=== PATIENT | female | born 1985 | race Caucasian/White ===

== ENCOUNTER 2025-02-23 21:08 | Emergency (ER) | payer OTHER, SELFPAY ==
[2025-02-23 21:11] VITALS: BP 120/90
--- NOTE | 2025-02-23 23:01 | ED.GENMED ---
History of Present Illness
General
Chief Complaint: Skin Surface Trauma
Source: patient
Exam Limitations: none
Time Seen by Provider: 02/23/25 22:28
Nursing documentation reviewed up to this point in time: agreed with
History of Present Illness
History of Present Illness:
Patient presents to ED secondary to right lower leg laceration, which occurred, when she fell accidentally and hit the back of her right lower leg against a screw. Denies any other injuries. Denies loss of sensation or weakness. The patient does
not take any blood thinning medications.
Past History
Past History
ED Past Medical History: Other (ectopic ); Negative Asthma, HTN, Hypercholesterolemia or NIDDM
ED Past Surgical History: Gynecological (Tubal and then reversal, Ectopic - R with tube removal) and Other (abdominoplasty)
Social History
Tobacco: Non-smoker
Alcohol: None
Drug: None
Personal: Single
Living: with family
Employment: Employed
Family History
Family History: Other (Noncontributory)
Review of Systems
Review of Systems
Allergies reviewed?: Yes
All Other Systems: ROS reviewed and negative except as documented in HPI and ROS
Constitutional: Reports no symptoms; Denies fever
Musculoskeletal: Reports no symptoms
Skin: Reports other (leg laceration)
Neurological: Reports no symptoms
Phy Exam
Physical Exam
Physical Exam:
Physical Exam
General: no apparent distress, not acutely ill. afebrile
Head: nc/at. eomi
Neck: supple. normal range of motion
Neuro: alert and oriented x 3. no focal neurological deficits
Skin: an approx 4 cm superficial laceration, c-shaped with edge of skin with mild discoloration, without active bleeding
Psychiatric: well kept. interactive and cooperative
Extremities: no edema. no calf tenderness.
Course
Vital Signs
Initial and Last Documented VS:
Initial Vital Signs
Temp Pulse Resp BP Pulse Ox
98 F 91 16 120/90 100
02/23/25 21:11 02/23/25 21:11 02/23/25 21:11 02/23/25 21:11 02/23/25 21:11
Last Documented Vital Signs
Temp Pulse Resp BP Pulse Ox
98 F 91 16 120/90 100
02/23/25 21:11 02/23/25 21:11 02/23/25 21:11 02/23/25 21:11 02/23/25 23:03
Procedures
Laceration Closure
Right Posterior Distal Leg:
Status of Wound: clean
Size of Wound in cm: 4
Description of Wound Edges: surrounded by abrasion and flap-poorly vascularized
Preparation: cleaned with SurClens
Anesthesia: 1% Lidocaine with epi
Revision/Debridement: routine- no revision
Type of Closure: single layer closure
Skin Closure Material: 5-0 nylon
Number of sutures: 9
MDM/Problems Addressed
MDM/Problems Addressed:
Wound well-approximated after placement of 9 sutures. Patient will be advised to keep the area clean and dry, along with PCP follow-up as an outpatient, including suture removal in 7 to 10 days. Patient states that her tetanus vaccination is
up-to-date.
*Pulse Oximetry
SaO2: 100
Oxygen Mode of Delivery: Room air
Patient hypoxic: no
*Critical Care Note
Total Time (30-74mins, 75-104mins- exclusive of procedures): Not Applicable
ED Attending Note
-
Portions of this chart may have been created with voice recognition software.� Occasional wrong word or��sound alike� substitutions may have occurred due to the inherent limitations of voice recognition software.
Discharge Plan
Departure
Patient Disposition: Home (Routine Discharge)
Date of Disposition: 02/23/25
Time of Disposition: 23:03
Patient with high blood pressure during this ER visit?: Yes
Condition: Good
Discharge Problem:
Laceration of leg
Instructions: Laceration Repair With Stitches (DC)
Prescriptions:
No Action
vit-iron fum-folic ac 1 EACH tablet
1 ea PO DAILY
levothyroxine [Synthroid] 88 MCG tablet
150 mcg PO DAILY
acetaminophen 325 MG tablet
650 mg PO Q4HPRN PRN (Reason: mild pain) 0RF
sennosides-docusate sodium 1 TABLET tablet
1 tab PO DAILYPRN PRN (Reason: constipation) Qty: 30 0RF
ferrous sulfate [FeroSul] 325 MG tablet
325 mg PO DAILY Qty: 30 0RF
ibuprofen 600 MG tablet
600 mg PO Q6HPRN PRN (Reason: cramps) Qty: 60 0RF
simethicone [Gas Relief 80 (simethicone)] 80 MG tablet,chewable
80 mg PO TIDPRN PRN (Reason: flatulence) 0RF
enoxaparin 40 MG/0.4 ML syringe
40 mg SC DAILY Qty: 45 0RF
Referrals:
Jt Lee MD [Family Provider, [facility]]
Activity Restrictions/Additional Instructions:
As discussed, please follow-up with your primary care physician for reevaluation, including suture removal in 7 to 10 days.
Interventions
Interventions:
*Risk Screen - Suicide Last Done: 02/23/25 21:11
*Neglect/Abuse Screening Last Done: 02/23/25 21:11
*ED- Fall Risk Assessment Last Done: 02/23/25 21:38
*Nursing Disposition Last Done: 02/23/25 23:06
ED-Skin Assessment Last Done: 02/23/25 21:38
Discharge Date and Time
Discharge Date/Time: 02/23/25 23:07
Print Language: MOLDOVAN
== END 2025-02-23 23:07 | disposition home or self-care (01) ==
LOC: EMR 21:08
PROVIDERS: EMERGENCY PHYSICIAN Emergency Medicine; FAMILY PHYSICIAN Family Medicine
DX: S81.811A Laceration without foreign body, right lower leg, initial encounter (principal); W01.118A Fall on same level from slipping, tripping and stumbling with subsequent striking against other sharp object, initial encounter; R03.0 Elevated blood-pressure reading, without diagnosis of hypertension
CPT/HCPCS: 99282; 12002